=== PATIENT | female | born 2000 ===

== ENCOUNTER 2023-03-12 23:46 | Outpatient (CLI) | payer OTHER ==
[~2023-03-12] VITALS: Ht 152.4 cm; Wt 77.0 kg
[2023-03-13] VITALS: BP 129/77
== END 2023-03-13 00:30 ==
LOC: M LDO 23:46
PROVIDERS: ATTEND Obstetrics & Gynecology
DX: O47.1 False labor at or after 37 completed weeks of gestation (principal); Z3A.39 39 weeks gestation of pregnancy
CPT/HCPCS: 59025; G0463

== ENCOUNTER 2023-03-14 01:33 | Outpatient (CLI) | payer OTHER ==
[~2023-03-14] VITALS: Ht 152.4 cm; Wt 77.0 kg
[2023-03-14 01:43] VITALS: BP 137/85
[2023-03-14] MEDS ORDERED: UNRESOLVED CLARIFICATION ENTRY XX STA (04:15)
[2023-03-14] MEDS ORDERED: ACETAMINOPHEN 500 MG TAB PO ONE (05:00)
[2023-03-15] MEDS ORDERED: PRENTAB9 PO (13:29)
== END 2023-03-14 04:30 | disposition home or self-care (01) ==
LOC: M LDO 01:33
PROVIDERS: ATTEND Obstetrics & Gynecology
DX: O47.1 False labor at or after 37 completed weeks of gestation (principal); Z3A.40 40 weeks gestation of pregnancy
CPT/HCPCS: 59025; G0463

== ENCOUNTER 2023-03-14 22:59 | Inpatient (IN) | payer OTHER ==
[~2023-03-14] VITALS: Ht 152.4 cm; Wt 77.0 kg
[2023-03-14 23:16] VITALS: BP 115/59
[2023-03-14 23:55] VITALS: BP 113/58
[2023-03-15] VITALS (52 sets, daily range): BP systolic 90–131; BP diastolic 50–81
[2023-03-15] MEDS ORDERED: PROMETHAZINE 25MG/ML 1ML VIAL IV ONE
[2023-03-15] MEDS ORDERED: MORPHINE 10 MG/ML 1ML VIAL IV ONE
[2023-03-15] MEDS ORDERED: LR 1,000 ML IV SCH ×5 (00:05→22:40)
[2023-03-15] MEDS ORDERED: OXYTOCIN DRIP 30 UNITS in IV 1 EA IV SCH ×6 (03:05→22:40)
[2023-03-15] MEDS ORDERED: OXYTOCIN DRIP 30 UNITS in IV 1 EA IV PRN ×4 (03:05)
[2023-03-15] MEDS ORDERED: LIDOCAINE 1% MDV 20ML VIAL INFIL PRN (03:05)
[2023-03-15] MEDS ORDERED: METHYLERGONOVINE MALEATE 0.2MG/ML 1ML VIAL IM PRN (03:05)
[2023-03-15] MEDS ORDERED: TRANEXAMIC ACID INJection 1,000 MG in NS 100 ML IV PRN (03:05)
[2023-03-15 11:22] LABS: HEMATOCRIT 38.9 % (36.0-47.0); HEMOGLOBIN 12.9 g/dl (12.0-15.5); MEAN CORPUSCULAR HEMOGLOBIN 28.3 pg (27.0-33.0); MEAN CORPUSCULAR HGB CONC 33.2 g/dl (32.0-36.5); MEAN CORPUSCULAR VOLUME 85.3 fl (80.0-96.0); PLATELET COUNT, AUTOMATED 203 10^3/uL (150-450); RED BLOOD COUNT 4.56 10^6/uL (4.00-5.40); WHITE BLOOD COUNT 13.5 10^3/uL (4.0-10.0)
[2023-03-15] MEDS ORDERED: FENTANYL 2MCG/ML ROPIVACAINE 0.2% IN 0.9% NACL 100ML IVBAG As Ordered ONE (12:03)
[2023-03-15] MEDS ORDERED: ePHEDrine SULFATE 25 MG/5 ML(5MG/ML) SYRINGE IVP PRN (12:05)
[2023-03-15] MEDS ORDERED: EPIDURAL/PCA KEYS XX PRN (12:05)
[2023-03-15] MEDS ORDERED: diphenhydrAMINE 50MG/ML VIAL IV PRN (12:05)
[2023-03-15] MEDS ORDERED: ONDANSETRON 4MG 2ML VIAL IV PRN ×2 (12:05→22:40)
[2023-03-15] MEDS ORDERED: LR 500 ML IV PRN (12:05)
[2023-03-15] MEDS ORDERED: NALOXONE INJ 0.4MG/1ML VIAL IV PRN (12:05)
[2023-03-15] MEDS: FENTANYL/ROPIVACAINE/NACL BAG 100 ML EPIDURAL SCH ×2 (12:57→20:06)
[2023-03-15] MEDS ORDERED: PRENTAB9 PO (13:29)
[2023-03-15] MEDS ORDERED: HOME MED LIST COMPLETE! XX SCH (13:35)
[2023-03-15] MEDS ORDERED: diphenhydrAMINE 50MG/ML VIAL IV STA (15:51)
[2023-03-15] MEDS ORDERED: METHYLERGONOVINE MALEATE 0.2 MG TAB PO PRN (22:40)
[2023-03-15] MEDS ORDERED: IBUPROFEN 600MG TAB PO PRN (22:40)
[2023-03-15] MEDS ORDERED: RHOGAM 300MCG (1500IU) INJ IM SCH (22:40)
[2023-03-15] MEDS ORDERED: ACETAMINOPHEN TAB 650MG DOSE (2X325MG) PO PRN (22:40)
[2023-03-15] MEDS ORDERED: DIBUCAINE 1% OINTMENT 30GM TOP PRN (22:40)
[2023-03-15] MEDS ORDERED: MOM 30ML SUSPENSION UDC PO PRN (22:40)
[2023-03-15] MEDS ORDERED: DOCUSATE SODIUM 100MG CAPSULE PO PRN (22:40)
[2023-03-16 01:00] VITALS: BP 125/68
[2023-03-16] MEDS: IBUPROFEN 800 MG TAB PO PRN ×2 (01:07→17:25)
[2023-03-16 06:00] VITALS: BP 120/66
[2023-03-16] MEDS: PRENATAL VITAMINS CHEWABLE TABLET PO SCH (07:58)
[2023-03-16] MEDS: ACETAMINOPHEN 500 MG TAB PO PRN ×2 (07:58→23:07)
[2023-03-16] MEDS ORDERED: PRENATAL VITAMINS CHEWABLE TABLET PO SCH (09:00)
[2023-03-16 18:28] VITALS: BP 108/58; O2SAT 99
[2023-03-17 06:00] VITALS: BP 116/56; O2SAT 100
[2023-03-17] MEDS ORDERED: MEASLES,MUMPS,RUBELLA VACCINE INJ (MMR-II) SC.IMMUN ONE (09:00)
[2023-03-17] MEDS ORDERED: BOOSTRIX VACCINE (TETANUS/DIPHTH/ACEL. PERTUSSIS) 0.5ML SYR IM.IMMUN ONE (09:00)
[2023-03-17] MEDS: IBUPROFEN 800 MG TAB PO PRN (10:11)
[2023-03-17] MEDS: PRENATAL VITAMINS CHEWABLE TABLET PO SCH (10:11)
== END 2023-03-17 14:02 | disposition home or self-care (01) | DRG 807 ==
LOC: M LDO 22:59 → M LDI 03-15 04:16 → M OBS 03-16 00:33
PROVIDERS: ADMIT Obstetrics & Gynecology; ATTEND Obstetrics & Gynecology
PROC: 10E0XZZ Delivery of Products of Conception, External Approach (ICD-10-PCS; principal; 2023-03-15)
PROC: 0KQM0ZZ Repair Perineum Muscle, Open Approach (ICD-10-PCS; 2023-03-15)
DX: O48.0 Post-term pregnancy (principal); Z37.0 Single live birth; Z3A.40 40 weeks gestation of pregnancy; O70.1 Second degree perineal laceration during delivery; O32.6XX0 Maternal care for compound presentation, not applicable or unspecified